=== PATIENT | male | born 1995 | race Caucasian/White ===

== ENCOUNTER 2017-06-04 09:30 | Emergency (ER) | payer BC ==
[2017-06-04 09:38] VITALS: BMI 31.1
[2017-06-04] MEDS ORDERED: ONDANSETRON 4 MG/2 ML VIAL ONE (10:03)
[2017-06-04] MEDS ORDERED: SODIUM CHLORIDE 1,000 ML IV STA ×2 (10:06→11:11)
--- NOTE | 2017-06-04 10:07 | PDOC ---
History of Present Illness - General Chief Complaint: Vomiting/Diarrhea Stated Complaint: VOMITING, DIARRHEA Time Seen by Provider: 06/04/17 09:35 History Source: Patient (Patient walked in the room complaining of vomiting and diarrhea since last nite after eating chicken and shrimps in a restaurant) Exam Limitations: No Limitations - History of Present Illness Timing/Duration: 24 hours, getting worse Severity: moderate Modifying Factors: improves with: rest Associated Symptoms: reports: malaise, nausea/vomiting Past History - Travel Traveled outside of the country in the last 30 days: No Close contact w/someone who was outside of country & ill: No - Past Medical History Allergies/Adverse Reactions: Allergies Allergy/AdvReac Type Severity Reaction Status Date / Time No Known Allergies Allergy Verified 06/04/17 09:34 Home Medications: Ambulatory Orders NK [No Known Home Medication] 06/04/17 Other medical history: DENIES - Surgical History Other Surgical History: denies 06/04/17 11:38 - Suicide/Smoking/Psychosocial Hx Smoking History: Never smoked Have you smoked in the past 12 months: No Hx Alcohol Use: (social) Review of Systems - Review of Systems Able to Perform ROS?: Yes Is the patient limited Green[place]ic proficient: Yes Constitutional: Yes: Fever, Malaise, Weakness HEENTM: No: Symptoms Reported, See HPI, Eye Pain, Blurred Vision, Tearing, Recent change in vision, Double Vision, Cataracts, Ear Pain, Ocular Prothesis, Ear Discharge, Nose Pain, Nose Congestion, Tinnitus, Nose Bleeding, Hearing Loss , Throat Pain, Throat Swelling, Mouth Pain, Dental Problems, Difficulty Swallowing, Mouth Swelling, Other Respiratory: No: Symptoms reported, See HPI, Cough, Orthopnea, Shortness of Breath, SOB with Exertion, SOB at Rest, Stridor, Wheezing, Productive cough, Hemoptysis, Other Cardiac (ROS): No: Symptoms Reported, See HPI, Chest Pain, Edema, Irregular Heart Rate, Lightheadedness, Palpitations, Syncope, Chest Tightness, Other ABD/GI: Yes: See HPI, Diarrhea, Nausea, Poor Fluid Intake, Vomiting All Other Systems: Reviewed and Negative *Physical Exam - Vital Signs Last Vital Signs Temp Pulse Resp BP Pulse Ox 97.6 F 120 H 20 119/68 99 06/04/17 09:30 06/04/17 09:30 06/04/17 09:30 06/04/17 09:30 06/04/17 09:30 - Physical Exam General Appearance: Yes: Nourished, Appropriately Dressed, Moderate Distress HEENT: positive: VIOLET, Other (Dry oral mucosa ) Neck: positive: Supple Respiratory/Chest: positive: Lungs Clear, Normal Breath Sounds Cardiovascular: positive: Tachycardia Gastrointestinal/Abdominal: positive: Tender (Mild to moderate diffusely tender) , Increased Bowel Sounds. negative: Rebound Musculoskeletal: positive: Normal Inspection Extremity: positive: Normal Capillary Refill, Normal Inspection Integumentary: positive: Normal Color, Dry, Warm Neurologic: positive: Fully Oriented, Alert, Normal Mood/Affect ED Treatment Course - LABORATORY CBC & Chemistry Diagram: 06/04/17 10:09 06/04/17 10:09 Medical Decision Making - Medical Decision Making Patient seen immediately from arrival 06/04/17 11:47iarrhea prior to discharge Received iv fluids, medications, improving progressively Observed every hour by the hour for 3 hours. No vomiting or diarrhea prior to discharge 06/05/17 13:54 *DC/Admit/Observation/Transfer Diagnosis at time of Disposition: Gastroenteritis, Dehydration - Discharge Dispostion Disposition: HOME Condition at time of disposition: Improved Admit: No - Referrals - Patient Instructions Printed Discharge Instructions: Gastroenteritis Diet - Post Discharge Activity Forms/Work/School Notes: Back to Work
[2017-06-04 10:26] LABS: HEMATOCRIT 49.7 % (35.4-49); MCH 31.6 pg (25.7-33.7); MCHC 34.2 g/dl (32.0-35.9); MEAN CELL VOLUME 92.4 fl (80-96); MEAN PLT VOLUME 9.6 fl (7.5-11.1); PLATELET COUNT 225 K/MM3 (134-434); RBC 5.38 M/mm3 (4.00-5.60); RDW 11.4 % (11.9-15.9); WHITE BLOOD COUNT 13.2 K/mm3 (4.0-10.8)
[2017-06-04 10:35] LABS: ALK PHOS 77 U/L (32-92); ANION GAP 13 (8-16); BILIRUBIN,TOTAL 1.3 mg/dl (0.2-1.0); BLOOD UREA NITROGEN 15 mg/dl (7-18); CALCIUM 9.7 mg/dl (8.4-10.2); CHLORIDE 102 mmol/L (98-107); CO2 25 mmol/L (22-28); CREATININE 0.9 mg/dl (0.6-1.3); GLUCOSE,RANDOM 129 mg/dl (74-106); SGOT/AST 22 U/L (10-42); SGPT/ALT 20 U/L (10-40); SODIUM 140 mmol/L (136-145); TOT PROT 7.7 g/dl (6.4-8.3)
[2017-06-04] MEDS ORDERED: ONDANSETRON 4 MG/2 ML VIAL IVPUSH ONE (11:11)
[2017-06-04 12:53] VITALS: BP 115/79; PULSE 87; TEMP 98.5
== END 2017-06-04 12:55 | disposition home or self-care (01) ==
LOC: FER 09:30
PROC: 3E033GC Introduction of Other Therapeutic Substance into Peripheral Vein, Percutaneous Approach (ICD-10-PCS; principal; 2017-06-04)
PROC: 3E0337Z Introduction of Electrolytic and Water Balance Substance into Peripheral Vein, Percutaneous Approach (ICD-10-PCS; 2017-06-04)
DX: K52.9 Noninfective gastroenteritis and colitis, unspecified (principal); E86.0 Dehydration; R53.81 Other malaise
CPT/HCPCS: 36415; 80053; 85025; 99283-25

== ENCOUNTER 2019-12-12 07:14 | Emergency (ER) | payer OTHER ==
[2019-12-12 07:21] VITALS: BP 133/82; PULSE 112; TEMP 98.7; BMI 30.3
--- NOTE | 2019-12-12 07:39 | PDOC ---
History of Present Illness - General Chief Complaint: Abrasion Stated Complaint: FELL INTO A WALL Time Seen by Provider: 12/12/19 07:19 History Source: Patient Exam Limitations: No Limitations - History of Present Illness Initial Comments: 12/12/19 11:39 Pt presents to the ED complaining of abrasion to his R forearm that occurred today after falling into a wall when apprehending suspect. Denies other injuries or complaints. 12/12/19 12:17 Past History - Medical History Allergies/Adverse Reactions: Allergies Allergy/AdvReac Type Severity Reaction Status Date / Time No Known Allergies Allergy Verified 12/12/19 07:15 Home Medications: Ambulatory Orders NK [No Known Home Medication] 06/04/17 COPD: No - Psycho-Social/Smoking History Smoking History: Never smoked Have you smoked in the past 12 months: No - Substance Abuse Hx (Audit-C & DAST Scrn) How often the patient has a drink containing alcohol: Monthly or less Number of drinks the patient has on a typical day: 1 or 2 How often the patient has six or more drinks on one occasion: Never Score: In Men: 4 or > Positive; In Women: 3 or > Positive: 1 Screen Result (Pos requires Nsg. Audit-10AR): Negative In the last yr the pt used illegal drug/Rx for NonMed reason: No Score: Yes response is considered Positive: 0 Screen Result (Positive result requires Nsg. DAST-10): Negative Review of Systems - Review of Systems Able to Perform ROS?: Yes Is the patient limited Nepali proficient: No Integumentary: Yes: Other (+ abrasion to forearm) *Physical Exam - Vital Signs Last Vital Signs Temp Pulse Resp BP Pulse Ox 98.7 F 112 H 18 133/82 97 12/12/19 07:15 12/12/19 07:15 12/12/19 07:15 12/12/19 07:15 12/12/19 07:15 - Physical Exam 12/12/19 12:25 Gen :alert, NAD Ext: + 3 cm abrasion to R forearm. no discharge, no contusions, no deformities. No other injuries. No erythema or purulent discharge. Medical Decision Making - Medical Decision Making 12/12/19 12:27 Pt presents to the ED complaining of abrasion to the R forearm. Cleaned in the ED, UTD tetanus vaccine, no other injuries or complaints. Will discharge home. 12/12/19 12:27 Discharge - Discharge Information Problems reviewed: Yes Clinical Impression/Diagnosis: Abrasion Condition: Good Disposition: HOME - Admission No - Follow up/Referral Referrals: Wilfredo Starr MD [Primary Care Provider] - - Patient Discharge Instructions Patient Printed Discharge Instructions: DI for Abrasion Additional Instructions: you were seen in the Ed for an abrasion on your arm. You should wash it with soap and water and keep it clean and dry. Return to the ED for fever, severe redness or swelling of your arm, worsening pain, other new or worsening symptoms. You may want to keep it covered when you are working. - Post Discharge Activity
== END 2019-12-12 07:44 | disposition home or self-care (01) ==
LOC: FER 07:14
DX: S50.811A Abrasion of right forearm, initial encounter (principal)
CPT/HCPCS: 99282-25

== ENCOUNTER 2020-12-17 08:06 | Emergency (ER) | payer OTHER, BC ==
[2020-12-17 08:22] VITALS: BP 126/65; PULSE 90; TEMP 97.5; BMI 31.6
[2020-12-17] MEDS ORDERED: IBUPROFEN 600 MG TABLET (FP) PO ONE ×2 (09:19→09:29)
== END 2020-12-17 09:36 | disposition home or self-care (01) ==
LOC: FER 08:06
DX: M25.561 Pain in right knee (principal); M25.562 Pain in left knee; W50.0XXA Accidental hit or strike by another person, initial encounter; W01.0XXA Fall on same level from slipping, tripping and stumbling without subsequent striking against object, initial encounter; Y35.811A Legal intervention involving manhandling, law enforcement official injured, initial encounter
CPT/HCPCS: 99283-25